=== PATIENT | female | born 1995 | race Caucasian/White ===

== ENCOUNTER 2018-07-07 16:58 | Emergency (ER) | payer MEDICAID ==
[~2018-07-07 16:58] MED LIST: CEPH250T PO; DIPH25CA83 PO; LORA-512 PO; METR500T4 PO; NAPR500T6 PO; NITR100C6 PO; OMEP20TA23 PO; PRED50TA PO; RANI-366 PO; [UNRECOGNIZED DRUG - SUPPLY]
[2018-07-07 17:04] VITALS: BP 107/66
[2018-07-07 17:48] LABS: URINE HCG NEGATIVE (NEG)
[2018-07-07] MEDS ORDERED: CefTRIAXone 1000mg IM Kit (w/lidocaine diluent) IM ONE (20:40)
[2018-07-07] MEDS ORDERED: azithromycin 250mg tablet PO ONE (20:50)
== END 2018-07-07 20:56 | disposition home or self-care (01) ==
LOC: ER 16:58 → EEVIPCON 16:58 → ER 20:56
DX: S10.83XA Contusion of other specified part of neck, initial encounter (principal); S80.12XA Contusion of left lower leg, initial encounter; S80.11XA Contusion of right lower leg, initial encounter; S70.12XA Contusion of left thigh, initial encounter; S70.11XA Contusion of right thigh, initial encounter; S80.02XA Contusion of left knee, initial encounter; S80.211A Abrasion, right knee, initial encounter; T74.21XA Adult sexual abuse, confirmed, initial encounter; J45.909 Unspecified asthma, uncomplicated; G89.29 Other chronic pain; F12.90 Cannabis use, unspecified, uncomplicated; F15.90 Other stimulant use, unspecified, uncomplicated; Z98.890 Other specified postprocedural states; Z88.0 Allergy status to penicillin; Z88.6 Allergy status to analgesic agent; Z88.8 Allergy status to other drugs, medicaments and biological substances; Z79.899 Other long term (current) drug therapy; Y04.0XXA Assault by unarmed brawl or fight, initial encounter; Y93.89 Activity, other specified; Y92.830 Public park as the place of occurrence of the external cause; Y99.9 Unspecified external cause status; Y07.9 Unspecified perpetrator of maltreatment and neglect
CPT/HCPCS: 81025; 96372; 99284

== ENCOUNTER 2019-12-31 19:47 | Emergency (ER) | payer MEDICAID ==
[~2019-12-31] VITALS: Ht 160 cm; Wt 68.2 kg
[~2019-12-31 19:47] MED LIST changes: +METR-159 PO; -METR500T4 PO
[2019-12-31 20:22] LABS: URINE HCG NEGATIVE (NEG)
[2019-12-31 20:25] LABS: CLARITY,URINE SLIGHTLY CLOUDY (Clear); COLOR,URINE YELLOW (Yellow); GLUCOSE, URINE NEGATIVE (Neg); KETONES,URINE NEGATIVE (Neg); LEUKOCYTE ESTERASE ,URINE SMALL (Neg); NITRITES, URINE NEGATIVE (Neg); OCCULT BLOOD,URINE TRACE-INTACT (Neg); PROTEIN,URINE NEGATIVE (Neg); UROBILINOGEN,URINE 0.2 E.U/dL (0.2-1.0)
[2019-12-31 20:26] LABS: UA COLLECTION TYPE CLN CATCH MIDSTREAM
[2019-12-31 20:33] LABS: BACTERIA,URINE 2+ /HPF (Neg); MUCUS STRANDS MANY /LPF (Neg); SQUAMOUS EPITHELIAL CELL,UR MANY /LPF (FEW)
[2019-12-31] MEDS ORDERED: azithromycin 250mg tablet PO ONE (20:40)
[2019-12-31] MEDS ORDERED: CefTRIAXone 250MG IM Kit w/LIDOcaine IM ONE (20:40)
[2019-12-31] MEDS ORDERED: ondansetron 4mg rapidly disintigrating tab PO ONE (21:25)
[2019-12-31] MEDS ORDERED: DOXY100C2 PO (23:13)
--- NOTE | 2019-12-31 23:15 | NUR ---
RALPH Castro at bedside.
[2019-12-31] MEDS ORDERED: BENCRM TOP (23:17)
[2019-12-31 23:24] VITALS: BP 117/79
== END 2019-12-31 23:25 | disposition home or self-care (01) ==
LOC: ER 19:52
DX: N89.8 Other specified noninflammatory disorders of vagina (principal); Z11.3 Encounter for screening for infections with a predominantly sexual mode of transmission; J45.909 Unspecified asthma, uncomplicated; G89.29 Other chronic pain; F41.9 Anxiety disorder, unspecified; F31.9 Bipolar disorder, unspecified; F12.90 Cannabis use, unspecified, uncomplicated; F15.90 Other stimulant use, unspecified, uncomplicated; Z98.890 Other specified postprocedural states; Z86.69 Personal history of other diseases of the nervous system and sense organs; Z88.8 Allergy status to other drugs, medicaments and biological substances; Z79.899 Other long term (current) drug therapy
CPT/HCPCS: 36415; 81001; 81025; 87210; 87491; 87591; 96372; 99284; J0696

== ENCOUNTER 2020-08-02 14:32 | Emergency (ER) | payer MEDICAID ==
[~2020-08-02] VITALS: Ht 160 cm; Wt 70.5 kg
[~2020-08-02 14:32] MED LIST changes: +BENCRM TOP
[2020-08-02 15:20] LABS: BASOPHILS % (AUTO) 0.5 % (0-1); EOSINOPHILS # (AUTO) 0.1 X10'3 (0-0.9); EOSINOPHILS % (AUTO) 0.8 % (0-6); HEMATOCRIT 35.3 % (35.0-45.0); HEMOGLOBIN 12.1 g/dl (12.0-16.0); LYMPHOCYTES # (AUTO) 1.5 X10'3 (1.1-4.8); LYMPHOCYTES % (AUTO) 23.8 % (21-51); MEAN CORPUSCULAR HEMOGLOBIN 30.3 PG (27.0-31.0); MEAN CORPUSCULAR HGB CONC 34.2 g/dL (33.0-36.5); MEAN CORPUSCULAR VOLUME 88.7 FL (78-98); MEAN PLATELET VOLUME 7.6 FL (7.4-10.4); MONOCYTES # (AUTO) 0.5 X10'3 (0-0.9); MONOCYTES % (AUTO) 8.6 % (2-12); NEUTROPHILS # (AUTO) 4.2 X10'3 (1.8-7.7); NEUTROPHILS % (AUTO) 66.3 % (42-75); PLATELET COUNT 236 X10'3 (140-440); RED BLOOD COUNT 3.98 X10'6 (4.20-5.60); RED CELL DISTRIBUTION WIDTH 12.8 % (11.5-14.5); WHITE BLOOD COUNT 6.4 X10'3 (4.5-11.0)
[2020-08-02 15:36] LABS: ALANINE AMINOTRANSFERASE 20 U/L (12-78); ALBUMIN 3.2 G/DL (3.4-5.0); ALBUMIN/GLOBULIN RATIO 0.8 (1.1-1.5); ALKALINE PHOSPHATASE 46 IU/L (46-116); ANION GAP 8 (8-16); ASPARTATE AMINO TRANSFERASE 18 U/L (10-37); BILIRUBIN,TOTAL 0.2 MG/DL (0.1-1.0); BLOOD UREA NITROGEN 9 MG/DL (7-18); BUN/CREATININE RATIO 15.3 (6.6-38.0); CALCIUM 8.4 MG/DL (8.5-10.1); CHLORIDE 104 MMOL/L (99-107); CREATININE 0.59 MG/DL (0.40-0.90); GLUCOSE 94 MG/DL (70-104); POTASSIUM 3.6 MMOL/L (3.5-5.1); SODIUM 138 MMOL/L (135-145); TOTAL CARBON DIOXIDE 25.6 MMOL/L (24-32); TOTAL PROTEIN 7.3 G/DL (6.4-8.2); eGFR > 90 ML/MIN
[2020-08-02 17:39] LABS: CLARITY,URINE SLIGHTLY CLOUDY (Clear); COLOR,URINE YELLOW (Yellow); GLUCOSE, URINE NEGATIVE (Neg); KETONES,URINE NEGATIVE (Neg); LEUKOCYTE ESTERASE ,URINE NEGATIVE (Neg); NITRITES, URINE NEGATIVE (Neg); OCCULT BLOOD,URINE NEGATIVE (Neg); PROTEIN,URINE NEGATIVE (Neg); UROBILINOGEN,URINE 0.2 E.U/dL (0.2-1.0)
[2020-08-02 17:42] LABS: UA COLLECTION TYPE CLN CATCH MIDSTREAM
[2020-08-02 18:00] LABS: MUCUS STRANDS MODERATE /LPF (Neg); RBC,URINE NONE SEEN /HPF (0-2); SQUAMOUS EPITHELIAL CELL,UR MANY /LPF (FEW); WBC,URINE NONE SEEN /HPF (0-4)
[2020-08-02 18:01] LABS: BACTERIA,URINE FEW /HPF (Neg)
[2020-08-02 18:03] VITALS: BP 111/77
== END 2020-08-02 18:08 | disposition home or self-care (01) ==
LOC: ER 14:33
DX: O26.892 Other specified pregnancy related conditions, second trimester (principal); R07.89 Other chest pain; R51.9 Headache, unspecified; G89.29 Other chronic pain; O99.512 Diseases of the respiratory system complicating pregnancy, second trimester; J45.909 Unspecified asthma, uncomplicated; O99.342 Other mental disorders complicating pregnancy, second trimester; F41.9 Anxiety disorder, unspecified; F31.9 Bipolar disorder, unspecified; F20.9 Schizophrenia, unspecified; O99.322 Drug use complicating pregnancy, second trimester; F12.90 Cannabis use, unspecified, uncomplicated; F15.90 Other stimulant use, unspecified, uncomplicated; Z98.890 Other specified postprocedural states; Z88.8 Allergy status to other drugs, medicaments and biological substances; Z79.899 Other long term (current) drug therapy; Z3A.18 18 weeks gestation of pregnancy
CPT/HCPCS: 36415; 80053; 81001; 83880; 84484; 85025; 93005; 99285

== ENCOUNTER 2021-03-06 23:55 | Emergency (ER) | payer MEDICAID ==
[~2021-03-06] VITALS: Ht 160 cm; Wt 78.4 kg
[2021-03-07 00:09] VITALS: BP 112/74
[2021-03-07] MEDS ORDERED: AZIT-63 PO (00:35)
[2021-03-07] MEDS ORDERED: BENZ-16 PO (00:35)
== END 2021-03-07 00:44 | disposition home or self-care (01) ==
LOC: ER 23:56
DX: R05 Cough (principal); M54.2 Cervicalgia; R06.02 Shortness of breath; J45.909 Unspecified asthma, uncomplicated; G89.29 Other chronic pain; F41.9 Anxiety disorder, unspecified; F31.9 Bipolar disorder, unspecified; F20.9 Schizophrenia, unspecified; F12.90 Cannabis use, unspecified, uncomplicated; F15.90 Other stimulant use, unspecified, uncomplicated; Z86.69 Personal history of other diseases of the nervous system and sense organs; Z98.890 Other specified postprocedural states; Z88.8 Allergy status to other drugs, medicaments and biological substances; Z79.899 Other long term (current) drug therapy
CPT/HCPCS: 99283

== ENCOUNTER 2021-05-21 11:59 | Emergency (ER) | payer MEDICAID ==
[~2021-05-21] VITALS: Ht 160 cm; Wt 77.0 kg
[2021-05-21 12:49] VITALS: BP 137/62
== END 2021-05-21 14:20 | disposition left against medical advice (07) ==
LOC: ER 12:00
DX: L02.511 Cutaneous abscess of right hand (principal); Z53.21 Procedure and treatment not carried out due to patient leaving prior to being seen by health care provider

== ENCOUNTER 2021-08-22 21:23 | Emergency (ER) | payer MEDICAID ==
[~2021-08-22] VITALS: Ht 160 cm; Wt 63.0 kg
[2021-08-22 22:39] VITALS: BP 124/68
== END 2021-08-23 08:49 | disposition left against medical advice (07) ==
LOC: ER 21:24
DX: R21 Rash and other nonspecific skin eruption (principal); Z53.21 Procedure and treatment not carried out due to patient leaving prior to being seen by health care provider

== ENCOUNTER 2021-08-28 11:34 | Emergency (ER) | payer MEDICAID ==
[~2021-08-28] VITALS: Ht 160 cm; Wt 59.1 kg
[2021-08-28] MEDS ORDERED: diphenhydrAMINE 50 mg/ml inj IV ONE (11:40)
[2021-08-28] MEDS ORDERED: methylPREDNISolone sod succ 125mg/2ml vial IV ONE (11:40)
[2021-08-28] MEDS ORDERED: albuterol 2.5 MG/3 ML nebule NEB ONE (11:40)
[2021-08-28] MEDS ORDERED: famotidine/PF 10 mg/ml inj IV ONE (11:40)
[2021-08-28 12:15] LABS: BASOPHILS # (AUTO) 0.1 X10'3 (0-0.2); BASOPHILS % (AUTO) 1.3 % (0-1); EOSINOPHILS # (AUTO) 0.1 X10'3 (0-0.9); EOSINOPHILS % (AUTO) 1.5 % (0-6); HEMATOCRIT 37.7 % (35.0-45.0); HEMOGLOBIN 12.9 g/dl (12.0-16.0); LYMPHOCYTES # (AUTO) 1.5 X10'3 (1.1-4.8); LYMPHOCYTES % (AUTO) 36.3 % (21-51); MEAN CORPUSCULAR HGB CONC 34.1 g/dL (33.0-36.5); MEAN CORPUSCULAR VOLUME 87.8 FL (78-98); MEAN PLATELET VOLUME 7.6 FL (7.4-10.4); MONOCYTES # (AUTO) 0.5 X10'3 (0-0.9); MONOCYTES % (AUTO) 13.5 % (2-12); NEUTROPHILS # (AUTO) 1.9 X10'3 (1.8-7.7); NEUTROPHILS % (AUTO) 47.4 % (42-75); PLATELET COUNT 292 X10'3 (140-440); RED BLOOD COUNT 4.29 X10'6 (4.20-5.60); RED CELL DISTRIBUTION WIDTH 12.7 % (11.5-14.5)
[2021-08-28 12:30] LABS: ALANINE AMINOTRANSFERASE 22 U/L (12-78); ALBUMIN 3.5 G/DL (3.4-5.0); ALKALINE PHOSPHATASE 61 IU/L (46-116); ANION GAP 11 (8-16); ASPARTATE AMINO TRANSFERASE 18 U/L (10-37); BILIRUBIN,TOTAL 0.3 MG/DL (0.1-1.0); BLOOD UREA NITROGEN 11 MG/DL (7-18); BUN/CREATININE RATIO 12.5 (6.6-38.0); CALCIUM 7.6 MG/DL (8.5-10.1); CHLORIDE 106 MMOL/L (99-107); CREATININE 0.88 MG/DL (0.40-0.90); GLUCOSE 86 MG/DL (70-104); SODIUM 141 MMOL/L (135-145); TOTAL CARBON DIOXIDE 23.6 MMOL/L (24-32); eGFR 77 ML/MIN
[2021-08-28 13:30] VITALS: BP 120/75
== END 2021-08-28 13:33 | disposition home or self-care (01) ==
LOC: ER 11:34
DX: L27.0 Generalized skin eruption due to drugs and medicaments taken internally (principal); T36.8X5A Adverse effect of other systemic antibiotics, initial encounter; G40.909 Epilepsy, unspecified, not intractable, without status epilepticus; J45.909 Unspecified asthma, uncomplicated; G89.29 Other chronic pain; F15.90 Other stimulant use, unspecified, uncomplicated; F12.90 Cannabis use, unspecified, uncomplicated; Z87.81 Personal history of (healed) traumatic fracture; Z88.0 Allergy status to penicillin; Z88.1 Allergy status to other antibiotic agents; Z88.8 Allergy status to other drugs, medicaments and biological substances; Z79.899 Other long term (current) drug therapy; Z79.2 Long term (current) use of antibiotics; Y92.89 Other specified places as the place of occurrence of the external cause
CPT/HCPCS: 36415; 71045; 80053; 85025; 93005; 94640; 96374; 96375; 99285; J1200; J2930; J3490; 94760

== ENCOUNTER 2021-10-06 17:12 | Emergency (ER) | payer MEDICAID ==
[~2021-10-06] VITALS: Ht 160 cm; Wt 75.0 kg
[2021-10-06 17:38] VITALS: BP 114/73
[2021-10-06] MEDS ORDERED: CefTRIAXone 1000mg IM Kit (w/lidocaine diluent) IM ONE (17:45)
[2021-10-06 18:40] LABS: URINE HCG NEGATIVE (NEG)
[2021-10-06 18:47] LABS: CLARITY,URINE CLEAR (Clear); COLOR,URINE YELLOW (Yellow); GLUCOSE, URINE NEGATIVE (Neg); KETONES,URINE NEGATIVE (Neg); LEUKOCYTE ESTERASE ,URINE NEGATIVE (Neg); NITRITES, URINE NEGATIVE (Neg); OCCULT BLOOD,URINE NEGATIVE (Neg); PROTEIN,URINE NEGATIVE (Neg); UROBILINOGEN,URINE 0.2 E.U/dL (0.2-1.0)
[2021-10-06 18:49] LABS: UA COLLECTION TYPE CLN CATCH MIDSTREAM
[2021-10-06] MEDS ORDERED: DOXYCYCLINE 100MG CAPSULE PO STA (19:09)
[2021-10-06] MEDS ORDERED: CEPH250T PO (19:34)
[2021-10-06] MEDS ORDERED: DOXY100C77 PO (19:34)
== END 2021-10-06 20:40 | disposition home or self-care (01) ==
LOC: ER 17:12
DX: A64 Unspecified sexually transmitted disease (principal); F12.10 Cannabis abuse, uncomplicated; F15.10 Other stimulant abuse, uncomplicated; G89.29 Other chronic pain; M54.9 Dorsalgia, unspecified; J45.909 Unspecified asthma, uncomplicated; F31.9 Bipolar disorder, unspecified; Z88.1 Allergy status to other antibiotic agents; Z88.6 Allergy status to analgesic agent
CPT/HCPCS: 36415; 81003; 81025; 86592; 87491; 87591; 96372; 99283; J0696

== ENCOUNTER 2022-01-06 23:22 | Emergency (ER) | payer MEDICAID ==
[~2022-01-06] VITALS: Ht 160 cm; Wt 68.2 kg
[2022-01-06 23:28] VITALS: BP 112/80
[2022-01-06 23:49] LABS: BASOPHILS % (AUTO) 0.7 % (0-1); EOSINOPHILS # (AUTO) 0.1 X10'3 (0-0.9); EOSINOPHILS % (AUTO) 0.9 % (0-6); HEMATOCRIT 37.7 % (35.0-45.0); LYMPHOCYTES # (AUTO) 1.4 X10'3 (1.1-4.8); LYMPHOCYTES % (AUTO) 19.5 % (21-51); MEAN CORPUSCULAR HEMOGLOBIN 29.9 PG (27.0-31.0); MEAN CORPUSCULAR HGB CONC 34.6 g/dL (33.0-36.5); MEAN CORPUSCULAR VOLUME 86.5 FL (78-98); MEAN PLATELET VOLUME 7.6 FL (7.4-10.4); MONOCYTES # (AUTO) 0.6 X10'3 (0-0.9); MONOCYTES % (AUTO) 8.9 % (2-12); PLATELET COUNT 300 X10'3 (140-440); RED BLOOD COUNT 4.35 X10'6 (4.20-5.60); RED CELL DISTRIBUTION WIDTH 12.9 % (11.5-14.5); WHITE BLOOD COUNT 7.1 X10'3 (4.5-11.0)
[2022-01-07 00:01] LABS: ALANINE AMINOTRANSFERASE 21 U/L (12-78); ALBUMIN 3.9 G/DL (3.4-5.0); ALBUMIN/GLOBULIN RATIO 1.1 (1.1-1.5); ALKALINE PHOSPHATASE 76 IU/L (46-116); ANION GAP 7 (8-16); ASPARTATE AMINO TRANSFERASE 19 U/L (10-37); BILIRUBIN,TOTAL 0.2 MG/DL (0.1-1.0); BLOOD UREA NITROGEN 15 MG/DL (7-18); BUN/CREATININE RATIO 17.6 (6.6-38.0); CALCIUM 8.1 MG/DL (8.5-10.1); CHLORIDE 107 MMOL/L (99-107); CREATININE 0.85 MG/DL (0.40-0.90); GLUCOSE 102 MG/DL (70-104); POTASSIUM 3.9 MMOL/L (3.5-5.1); SODIUM 142 MMOL/L (135-145); TOTAL CARBON DIOXIDE 27.7 MMOL/L (24-32); TOTAL PROTEIN 7.4 G/DL (6.4-8.2); eGFR 80 ML/MIN
[2022-01-07 00:07] LABS: BETA HCG,QUANTITATIVE < 1.0 mIU/ml
[2022-01-07 00:19] LABS: HCG SERUM QL NEGATIVE
[2022-01-07] MEDS ORDERED: tetanus & diphtheria toxoid (Td) vaccine 0.5ml IMVAC ONE (00:55)
[2022-01-07] MEDS ORDERED: TETanus/Pertussis (Acell)/Diphther VAC/PF (Tdap-Adult) 0.5ml syringe IMVAC ONE (01:00)
== END 2022-01-07 01:08 ==
LOC: ER 23:24
DX: S61.412A Laceration without foreign body of left hand, initial encounter (principal); R11.10 Vomiting, unspecified; J45.909 Unspecified asthma, uncomplicated; G89.29 Other chronic pain; F41.9 Anxiety disorder, unspecified; F31.9 Bipolar disorder, unspecified; F20.9 Schizophrenia, unspecified; F12.90 Cannabis use, unspecified, uncomplicated; F15.90 Other stimulant use, unspecified, uncomplicated; Z88.1 Allergy status to other antibiotic agents; Z86.69 Personal history of other diseases of the nervous system and sense organs; Z98.890 Other specified postprocedural states; Z88.6 Allergy status to analgesic agent; Z79.2 Long term (current) use of antibiotics; Z88.8 Allergy status to other drugs, medicaments and biological substances; Z20.3 Contact with and (suspected) exposure to rabies; Z79.899 Other long term (current) drug therapy; X58.XXXA Exposure to other specified factors, initial encounter; Y93.89 Activity, other specified; Y92.89 Other specified places as the place of occurrence of the external cause; Y99.8 Other external cause status
CPT/HCPCS: 12001; 36415; 80053; 84702; 84703; 85025; 90471; 90715; 99283

== ENCOUNTER 2022-04-30 20:01 | Emergency (ER) | payer MEDICAID ==
[~2022-04-30] VITALS: Ht 160 cm; Wt 77.3 kg
[2022-04-30 20:09] VITALS: BP 114/70
[2022-04-30 22:07] LABS: CLARITY,URINE CLEAR (Clear); COLOR,URINE YELLOW (Yellow); GLUCOSE, URINE NEGATIVE (Neg); KETONES,URINE TRACE mg/dl (Neg); LEUKOCYTE ESTERASE ,URINE MODERATE (Neg); NITRITES, URINE POSITIVE (Neg); OCCULT BLOOD,URINE NEGATIVE (Neg); PROTEIN,URINE TRACE mg/dl (Neg); URINE HCG POSITIVE (NEG)
[2022-04-30] MEDS ORDERED: azithromycin 250mg tablet PO ONE (22:15)
[2022-04-30] MEDS ORDERED: CEFTRIAXONE 500 MG VIAL IM ONE (22:15)
[2022-04-30] MEDS ORDERED: metroNIDAZOLE 500mg tablet PO ONE (22:15)
[2022-04-30 22:18] LABS: UA COLLECTION TYPE VOIDED
[2022-04-30] MEDS ORDERED: ondansetron 4mg rapidly disintigrating tab PO ONE (22:20)
[2022-04-30 22:22] LABS: BACTERIA,URINE 3+ /HPF (Neg); MUCUS STRANDS MODERATE /LPF (Neg); SQUAMOUS EPITHELIAL CELL,UR MANY /LPF (FEW); YEAST FEW /HPF (NEGATIVE)
[2022-04-30] MEDS ORDERED: CefTRIAXone 500MG IM Kit w/LIDOcaine IM ONE ×2 (22:30)
[2022-05-01] MEDS ORDERED: NITR100C6 PO (01:17)
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
== END 2022-05-01 02:44 | disposition home or self-care (01) ==
LOC: ER 20:02 → EEVIPCON 20:02 → ER 05-01 02:44
DX: N30.00 Acute cystitis without hematuria (principal); T76.21XA Adult sexual abuse, suspected, initial encounter; J45.909 Unspecified asthma, uncomplicated; G89.29 Other chronic pain; M54.9 Dorsalgia, unspecified; F12.10 Cannabis abuse, uncomplicated; F15.10 Other stimulant abuse, uncomplicated; F31.9 Bipolar disorder, unspecified; Z88.8 Allergy status to other drugs, medicaments and biological substances; Z88.6 Allergy status to analgesic agent; Z88.0 Allergy status to penicillin
CPT/HCPCS: 81001; 81025; 96372; 99284; J0696

== ENCOUNTER 2022-09-09 11:55 | Emergency (ER) | payer MEDICAID ==
[~2022-09-09] VITALS: Ht 160 cm; Wt 79.0 kg
[2022-09-09 12:22] VITALS: BP 124/72
[2022-09-09 13:12] LABS: CLARITY,URINE CLEAR (Clear); COLOR,URINE YELLOW (Yellow); GLUCOSE, URINE NEGATIVE (Neg); KETONES,URINE NEGATIVE (Neg); LEUKOCYTE ESTERASE ,URINE NEGATIVE (Neg); NITRITES, URINE NEGATIVE (Neg); OCCULT BLOOD,URINE NEGATIVE (Neg); PH,URINE 6.5 (4.8-8.0); PROTEIN,URINE NEGATIVE (Neg); UROBILINOGEN,URINE 0.2 E.U/dL (0.2-1.0)
[2022-09-09 13:28] LABS: UA COLLECTION TYPE CLN CATCH MIDSTREAM
[2022-09-09] MEDS ORDERED: normal saline 1000ML IV soln IVB ONE (13:55)
[2022-09-09 14:19] LABS: BASOPHILS # (AUTO) 0.1 X10'3 (0-0.2); BASOPHILS % (AUTO) 0.6 % (0-1); EOSINOPHILS % (AUTO) 0.5 % (0-6); HEMATOCRIT 32.5 % (35.0-45.0); HEMOGLOBIN 11.3 g/dl (12.0-16.0); LYMPHOCYTES # (AUTO) 1.5 X10'3 (1.1-4.8); LYMPHOCYTES % (AUTO) 16.7 % (21-51); MEAN CORPUSCULAR HGB CONC 34.9 g/dL (33.0-36.5); MEAN CORPUSCULAR VOLUME 91.7 FL (78-98); MEAN PLATELET VOLUME 8.2 FL (7.4-10.4); MONOCYTES # (AUTO) 0.8 X10'3 (0-0.9); MONOCYTES % (AUTO) 8.4 % (2-12); NEUTROPHILS # (AUTO) 6.7 X10'3 (1.8-7.7); NEUTROPHILS % (AUTO) 73.8 % (42-75); PLATELET COUNT 206 X10'3 (140-440); RED BLOOD COUNT 3.54 X10'6 (4.20-5.60); RED CELL DISTRIBUTION WIDTH 12.7 % (11.5-14.5); WHITE BLOOD COUNT 9.1 X10'3 (4.5-11.0)
[2022-09-09 14:35] LABS: ALANINE AMINOTRANSFERASE 13 U/L (12-78); ALBUMIN 2.4 G/DL (3.4-5.0); ALBUMIN/GLOBULIN RATIO 0.6 (1.1-1.5); ALKALINE PHOSPHATASE 90 IU/L (46-116); ANION GAP 5 (8-16); ASPARTATE AMINO TRANSFERASE 21 U/L (10-37); BILIRUBIN,TOTAL 0.3 MG/DL (0.1-1.0); BLOOD UREA NITROGEN 7 MG/DL (7-18); BUN/CREATININE RATIO 11.7 (6.6-38.0); CALCIUM 8.1 MG/DL (8.5-10.1); CHLORIDE 103 MMOL/L (99-107); ETHANOL < 0.010 GM/DL (0.0-0.010); GLUCOSE 85 MG/DL (70-104); POTASSIUM 3.6 MMOL/L (3.5-5.1); SODIUM 136 MMOL/L (135-145); TOTAL CARBON DIOXIDE 27.6 MMOL/L (24-32); TOTAL PROTEIN 6.3 G/DL (6.4-8.2); eGFR > 90 ML/MIN
--- NOTE | 2022-09-09 14:55 | NUR ---
VASCULAR AT BEDSIDE
[2022-09-09 15:33] LABS: URINE AMPHETAMINE SCREEN NEGATIVE (Neg); URINE BARBITUATE SCREEN NEGATIVE (Neg); URINE BENZODIAZEPINES SCREEN NEGATIVE (Neg); URINE CANNABINOID SCREEN POSITIVE (Neg); URINE COCAINE SCREEN NEGATIVE (Neg); URINE METHADONE SCREEN NEGATIVE (Neg); URINE OPIATE SCREEN NEGATIVE (Neg); URINE PHENCYCLIDINE SCREEN NEGATIVE (Neg)
== END 2022-09-09 15:23 | disposition home or self-care (01) ==
LOC: ER 11:56
DX: O26.893 Other specified pregnancy related conditions, third trimester (principal); J06.9 Acute upper respiratory infection, unspecified; Z20.822 Contact with and (suspected) exposure to COVID-19; B97.89 Other viral agents as the cause of diseases classified elsewhere; J45.909 Unspecified asthma, uncomplicated; G89.29 Other chronic pain; F41.9 Anxiety disorder, unspecified; F31.9 Bipolar disorder, unspecified; F20.9 Schizophrenia, unspecified; F12.90 Cannabis use, unspecified, uncomplicated; F15.90 Other stimulant use, unspecified, uncomplicated; Z98.890 Other specified postprocedural states; Z88.1 Allergy status to other antibiotic agents; Z88.8 Allergy status to other drugs, medicaments and biological substances; Z88.6 Allergy status to analgesic agent; Z79.899 Other long term (current) drug therapy; Z3A.00 Weeks of gestation of pregnancy not specified
CPT/HCPCS: 36415; 80053; 80305; 80320; 81003; 85025; 87502; 87503; 87635; 93970; 99284; C9803

== ENCOUNTER 2022-11-29 15:07 | Emergency (ER) | payer MEDICAID ==
[~2022-11-29] VITALS: Ht 160 cm; Wt 68.2 kg
[2022-11-29 15:55] LABS: BASOPHILS # (AUTO) 0.1 X10'3 (0-0.2); EOSINOPHILS # (AUTO) 0.2 X10'3 (0-0.9); EOSINOPHILS % (AUTO) 2.9 % (0-6); HEMATOCRIT 40.6 % (35.0-45.0); HEMOGLOBIN 13.4 g/dl (12.0-16.0); LYMPHOCYTES # (AUTO) 1.9 X10'3 (1.1-4.8); LYMPHOCYTES % (AUTO) 33.1 % (21-51); MEAN CORPUSCULAR HEMOGLOBIN 29.6 PG (27.0-31.0); MEAN CORPUSCULAR HGB CONC 33.1 g/dL (33.0-36.5); MEAN CORPUSCULAR VOLUME 89.4 FL (78-98); MEAN PLATELET VOLUME 7.8 FL (7.4-10.4); MONOCYTES # (AUTO) 0.5 X10'3 (0-0.9); MONOCYTES % (AUTO) 9.2 % (2-12); NEUTROPHILS # (AUTO) 3.1 X10'3 (1.8-7.7); NEUTROPHILS % (AUTO) 53.8 % (42-75); PLATELET COUNT 281 X10'3 (140-440); RED BLOOD COUNT 4.54 X10'6 (4.20-5.60); RED CELL DISTRIBUTION WIDTH 12.7 % (11.5-14.5); WHITE BLOOD COUNT 5.7 X10'3 (4.5-11.0)
[2022-11-29 16:09] LABS: ALANINE AMINOTRANSFERASE 24 U/L (12-78); ALBUMIN 3.6 G/DL (3.4-5.0); ALBUMIN/GLOBULIN RATIO 1.1 (1.1-1.5); ALKALINE PHOSPHATASE 97 IU/L (46-116); ANION GAP 6 (8-16); ASPARTATE AMINO TRANSFERASE 23 U/L (10-37); BILIRUBIN,TOTAL 0.3 MG/DL (0.1-1.0); BLOOD UREA NITROGEN 18 MG/DL (7-18); CALCIUM 8.6 MG/DL (8.5-10.1); CHLORIDE 104 MMOL/L (99-107); GLUCOSE 82 MG/DL (70-104); POTASSIUM 3.9 MMOL/L (3.5-5.1); SODIUM 139 MMOL/L (135-145); TOTAL CARBON DIOXIDE 29.5 MMOL/L (24-32); eGFR 75 ML/MIN
[2022-11-29 16:27] VITALS: BP 120/86
[2022-11-29 16:42] LABS: CLARITY,URINE CLEAR (Clear); COLOR,URINE YELLOW (Yellow); GLUCOSE, URINE NEGATIVE (Neg); KETONES,URINE NEGATIVE (Neg); LEUKOCYTE ESTERASE ,URINE SMALL (Neg); NITRITES, URINE NEGATIVE (Neg); OCCULT BLOOD,URINE NEGATIVE (Neg); PROTEIN,URINE NEGATIVE (Neg); UROBILINOGEN,URINE 0.2 E.U/dL (0.2-1.0)
[2022-11-29 16:52] LABS: UA COLLECTION TYPE CLN CATCH MIDSTREAM
[2022-11-29 16:53] LABS: BACTERIA,URINE FEW /HPF (Neg); MUCUS STRANDS FEW /LPF (Neg); RBC,URINE NONE SEEN /HPF (0-2); SQUAMOUS EPITHELIAL CELL,UR MODERATE /LPF (FEW); WBC,URINE 0-4 /HPF (0-4)
[2022-11-29 17:00] LABS: URINE HCG NEGATIVE (NEG)
[2022-11-29] MEDS ORDERED: HYDR-3972 PO (17:13)
[2022-11-29] MEDS ORDERED: HYDROcodone/acetaminophen 10/325mg tab PO ONE (17:15)
== END 2022-11-29 17:46 | disposition home or self-care (01) ==
LOC: ER 15:08
DX: M79.605 Pain in left leg (principal); F41.9 Anxiety disorder, unspecified; M54.50 Low back pain, unspecified; J45.909 Unspecified asthma, uncomplicated; F31.9 Bipolar disorder, unspecified; F12.90 Cannabis use, unspecified, uncomplicated; F15.20 Other stimulant dependence, uncomplicated; Z88.1 Allergy status to other antibiotic agents; Z88.6 Allergy status to analgesic agent; Z88.8 Allergy status to other drugs, medicaments and biological substances
CPT/HCPCS: 36415; 80053; 81001; 81025; 85025; 87088; 99283

== ENCOUNTER 2022-12-19 16:07 | Emergency (ER) | payer MEDICAID ==
[~2022-12-19] VITALS: Ht 160 cm; Wt 72.7 kg
[2022-12-19 16:10] VITALS: BP 106/51
[2022-12-19] MEDS ORDERED: fluconazole 150mg tablet PO ONE (19:25)
[2022-12-19] MEDS ORDERED: MICO45CR46 VG (19:27)
== END 2022-12-19 20:06 | disposition home or self-care (01) ==
LOC: ER 16:08
DX: B37.31 Acute candidiasis of vulva and vagina (principal); F12.10 Cannabis abuse, uncomplicated; F15.10 Other stimulant abuse, uncomplicated; J45.909 Unspecified asthma, uncomplicated; G89.29 Other chronic pain; M54.9 Dorsalgia, unspecified; F31.9 Bipolar disorder, unspecified; F20.9 Schizophrenia, unspecified; Z87.81 Personal history of (healed) traumatic fracture; Z59.00 Homelessness unspecified; Z88.1 Allergy status to other antibiotic agents; Z88.8 Allergy status to other drugs, medicaments and biological substances; Z88.6 Allergy status to analgesic agent; Z79.1 Long term (current) use of non-steroidal anti-inflammatories (NSAID); Z79.2 Long term (current) use of antibiotics
CPT/HCPCS: 87210; 99284

== ENCOUNTER 2023-01-02 12:29 | Emergency (ER) | payer MEDICAID ==
[~2023-01-02] VITALS: Ht 160 cm; Wt 72.7 kg
[2023-01-02 12:42] VITALS: BP 117/69
[2023-01-02] MEDS ORDERED: CEFD300C3 PO (14:34)
[2023-01-02] MEDS ORDERED: SULF1TAB49 PO (14:34)
[2023-01-02] MEDS ORDERED: cephalexin 500mg capsule PO ONE (14:35)
[2023-01-02] MEDS ORDERED: sulfamethoxazole/trimethoprim DS (800/160mg) tablet PO ONE (14:35)
== END 2023-01-02 15:25 | disposition home or self-care (01) ==
LOC: ER 12:29
DX: L03.213 Periorbital cellulitis (principal); G89.29 Other chronic pain; M54.9 Dorsalgia, unspecified; F12.10 Cannabis abuse, uncomplicated; F15.10 Other stimulant abuse, uncomplicated; J45.909 Unspecified asthma, uncomplicated; F31.9 Bipolar disorder, unspecified; F20.9 Schizophrenia, unspecified; Z88.6 Allergy status to analgesic agent; Z88.1 Allergy status to other antibiotic agents; Z88.0 Allergy status to penicillin; Z79.1 Long term (current) use of non-steroidal anti-inflammatories (NSAID); Z79.2 Long term (current) use of antibiotics
CPT/HCPCS: 99283

== ENCOUNTER 2023-01-16 08:26 | Emergency (ER) | payer MEDICAID ==
[~2023-01-16] VITALS: Ht 160 cm; Wt 68.0 kg
[2023-01-16 08:31] VITALS: BP 122/93
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
== END 2023-01-16 09:30 | disposition left against medical advice (07) ==
LOC: EEVIPCON 08:27 → ER 08:27
DX: R21 Rash and other nonspecific skin eruption (principal); Z53.21 Procedure and treatment not carried out due to patient leaving prior to being seen by health care provider

== ENCOUNTER 2023-01-16 17:29 | Emergency (ER) | payer MEDICAID ==
[~2023-01-16] VITALS: Ht 160 cm; Wt 68.2 kg
[2023-01-16 18:17] VITALS: BP 125/87
--- NOTE | 2023-01-16 18:23 | NUR ---
[facility] called and they are aware that she is here. Informed [facility] she had left and has now returned. [id number]
--- NOTE | 2023-01-16 19:34 | NUR ---
head of geography will call [facility] they stated
--- NOTE | 2023-01-16 19:50 | NUR ---
[facility] here. NOAH GUNN aware of case
[2023-01-16] MEDS ORDERED: CefTRIAXone 500MG IM Kit w/LIDOcaine (for pt below or = to 150kg) IM ONE (21:20)
[2023-01-16] MEDS ORDERED: azithromycin 250mg tablet PO ONE (21:20)
[2023-01-16] MEDS ORDERED: TINIDAZOLE 500 MG TABLET PO ONE (21:20)
[2023-01-16] MEDS ORDERED: LEVONORGESTREL 1.5MG tablet 1.5 MG TABLET PO ONE (21:20)
== END 2023-01-17 01:40 | disposition home or self-care (01) ==
LOC: ER 17:30 → EEVIPCON 17:30 → ER 01-17 01:40
DX: T76.21XA Adult sexual abuse, suspected, initial encounter (principal); S19.80XA Other specified injuries of unspecified part of neck, initial encounter; G89.29 Other chronic pain; M54.9 Dorsalgia, unspecified; J45.909 Unspecified asthma, uncomplicated; F12.10 Cannabis abuse, uncomplicated; F20.9 Schizophrenia, unspecified; F15.10 Other stimulant abuse, uncomplicated; Z59.00 Homelessness unspecified; Z88.8 Allergy status to other drugs, medicaments and biological substances; Z88.6 Allergy status to analgesic agent; Z79.899 Other long term (current) drug therapy; Z79.1 Long term (current) use of non-steroidal anti-inflammatories (NSAID); Z79.2 Long term (current) use of antibiotics
CPT/HCPCS: 96372; 99284; J0696

== ENCOUNTER 2023-03-26 16:07 | Emergency (ER) | payer MEDICAID ==
[~2023-03-26] VITALS: Ht 160 cm; Wt 68.2 kg
[2023-03-26 16:17] VITALS: BP 114/64
[2023-03-26] MEDS ORDERED: azithromycin 250mg tablet PO ONE (16:30)
[2023-03-26] MEDS ORDERED: CefTRIAXone 1000mg IM Kit (w/lidocaine diluent) IM STA (16:30)
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
[2023-03-26 16:58] LABS: URINE HCG NEGATIVE (NEG)
[2023-03-26 16:59] LABS: CLARITY,URINE SLIGHTLY CLOUDY (Clear); COLOR,URINE YELLOW (Yellow); GLUCOSE, URINE NEGATIVE (Neg); KETONES,URINE NEGATIVE (Neg); LEUKOCYTE ESTERASE ,URINE NEGATIVE (Neg); NITRITES, URINE POSITIVE (Neg); OCCULT BLOOD,URINE NEGATIVE (Neg); PH,URINE 5.5 (4.8-8.0); PROTEIN,URINE NEGATIVE (Neg); UROBILINOGEN,URINE 0.2 E.U/dL (0.2-1.0)
[2023-03-26 17:30] LABS: UA COLLECTION TYPE VOIDED
[2023-03-26 17:33] LABS: MUCUS STRANDS MANY /LPF (Neg); SQUAMOUS EPITHELIAL CELL,UR MANY /LPF (FEW)
[2023-03-26 17:37] LABS: RBC,URINE 0-2 /HPF (0-2)
[2023-03-26 17:38] LABS: BACTERIA,URINE FEW /HPF (Neg)
[2023-03-26] MEDS ORDERED: DOXY100C76 PO (17:39)
== END 2023-03-26 18:13 | disposition home or self-care (01) ==
LOC: EEVIPCON 16:08 → ER 16:08
DX: N39.0 Urinary tract infection, site not specified (principal); N89.8 Other specified noninflammatory disorders of vagina; G89.29 Other chronic pain; J45.909 Unspecified asthma, uncomplicated; F41.9 Anxiety disorder, unspecified; F31.9 Bipolar disorder, unspecified; F20.9 Schizophrenia, unspecified; F12.90 Cannabis use, unspecified, uncomplicated; F15.90 Other stimulant use, unspecified, uncomplicated; Z56.0 Unemployment, unspecified; Z98.890 Other specified postprocedural states; Z88.1 Allergy status to other antibiotic agents; Z88.6 Allergy status to analgesic agent; Z79.899 Other long term (current) drug therapy
CPT/HCPCS: 36415; 81001; 81025; 87491; 87591; 96372; 99283; J0696

== ENCOUNTER 2023-07-03 18:01 | Emergency (ER) | payer MEDICAID, OTHER ==
[~2023-07-03] VITALS: Ht 160 cm; Wt 63.6 kg
--- NOTE | 2023-07-03 18:11 | NUR ---
CALL PLACED TO [facility], THEY WILL SEND OFFICERS OVER [place]
[2023-07-03] MEDS ORDERED: LEVONORGESTREL 1.5MG tablet 1.5 MG TABLET PO ONE (19:50)
[2023-07-03] MEDS ORDERED: azithromycin 250mg tablet PO ONE (19:50)
[2023-07-03] MEDS ORDERED: TINIDAZOLE 500 MG TABLET PO ONE (19:50)
[2023-07-03] MEDS ORDERED: CefTRIAXone 500MG IM Kit w/LIDOcaine (for pt below or = to 150kg) IM ONE (19:50)
[2023-07-03 20:09] LABS: URINE HCG NEGATIVE (NEG)
--- NOTE | 2023-07-03 20:14 | NUR ---
[employer] RESPONDING OFFICER FRANCESCA REY #[id number]
[2023-07-03] MEDS ORDERED: acetaminophen 325mg tablet PO ONE (20:50)
[2023-07-03 22:58] VITALS: BP 109/78; PULSE 90; RESP 14; TEMP 97.8; O2SAT 100
== END 2023-07-03 23:01 | disposition home or self-care (01) ==
LOC: EEVIPCON 18:02 → ER 18:02
DX: T74.21XA Adult sexual abuse, confirmed, initial encounter (principal); J45.909 Unspecified asthma, uncomplicated; G89.29 Other chronic pain; F17.200 Nicotine dependence, unspecified, uncomplicated; F12.90 Cannabis use, unspecified, uncomplicated; F15.90 Other stimulant use, unspecified, uncomplicated; Z87.440 Personal history of urinary (tract) infections; Z59.00 Homelessness unspecified; Z88.1 Allergy status to other antibiotic agents; Z88.8 Allergy status to other drugs, medicaments and biological substances; Z79.2 Long term (current) use of antibiotics; Z79.899 Other long term (current) drug therapy
CPT/HCPCS: 81025; 96372; 99284; J0696

== ENCOUNTER 2023-07-18 20:34 | Emergency (ER) | payer MEDICAID ==
[~2023-07-18] VITALS: Ht 160 cm; Wt 67.8 kg
[2023-07-18 20:44] VITALS: BP 127/99; PULSE 85; RESP 18; TEMP 98.3; O2SAT 99
--- NOTE | 2023-07-18 20:59 | NUR ---
[facility] CONTACTED WILL SEND OFFICER. [facility] CONTACTED WILL SEND ADVOCATE.
--- NOTE | 2023-07-18 23:23 | NUR ---
[employer] OFFICERS ARRIVED, INTERVIEWING PT. [facility] ADVOCATE IN ROOM.
[2023-07-19] MEDS ORDERED: CefTRIAXone 500MG IM Kit w/LIDOcaine (for pt below or = to 150kg) IM ONE (03:20)
[2023-07-19] MEDS ORDERED: azithromycin 250mg tablet PO ONE (03:20)
[2023-07-19] MEDS ORDERED: TINIDAZOLE 500 MG TABLET PO ONE (03:20)
[2023-07-19] MEDS ORDERED: TETanus/Pertussis (Acell)/Diphther VAC/PF (Tdap-Adult) 0.5ml syringe IMVAC ONE (03:35)
[2023-07-19 05:14] LABS: URINE HCG NEGATIVE (NEG)
== END 2023-07-19 06:15 | disposition home or self-care (01) ==
LOC: EEVIPCON 20:35 → ER 20:35
DX: T74.21XA Adult sexual abuse, confirmed, initial encounter (principal); R11.2 Nausea with vomiting, unspecified; J45.909 Unspecified asthma, uncomplicated; G89.29 Other chronic pain; F12.90 Cannabis use, unspecified, uncomplicated; F15.90 Other stimulant use, unspecified, uncomplicated; Z56.0 Unemployment, unspecified; Z87.442 Personal history of urinary calculi; Z88.1 Allergy status to other antibiotic agents; Z88.8 Allergy status to other drugs, medicaments and biological substances; Z79.2 Long term (current) use of antibiotics; Z23 Encounter for immunization; Z79.899 Other long term (current) drug therapy
CPT/HCPCS: 81025; 90471; 90715; 96372; 99284; J0696

== ENCOUNTER 2023-08-08 15:16 | Emergency (ER) | payer MEDICAID ==
[~2023-08-08] VITALS: Ht 160 cm; Wt 65.8 kg
[2023-08-08 15:23] VITALS: TEMP 98
[2023-08-08 16:40] LABS: URINE HCG NEGATIVE (NEG)
[2023-08-08] MEDS ORDERED: DOXYCYCLINE 100MG CAPSULE PO STA (16:43)
[2023-08-08] MEDS ORDERED: metroNIDAZOLE 500mg tablet PO ONE (16:45)
[2023-08-08] MEDS ORDERED: CefTRIAXone 250MG inj IM ONE (16:45)
[2023-08-08] MEDS ORDERED: METR-159 PO (16:50)
[2023-08-08] MEDS ORDERED: DOXY-356 PO (16:50)
[2023-08-08 16:53] LABS: COLOR,URINE ORANGE (Yellow)
[2023-08-08 16:54] LABS: CLARITY,URINE SLIGHTLY CLOUDY (Clear)
[2023-08-08] MEDS ORDERED: CefTRIAXone 500MG IM Kit w/LIDOcaine IM ONE (16:55)
[2023-08-08 16:56] LABS: UA COLLECTION TYPE VOIDED
[2023-08-08 17:00] LABS: BACTERIA,URINE FEW /HPF (Neg); MUCUS STRANDS FEW /LPF (Neg); SQUAMOUS EPITHELIAL CELL,UR MODERATE /LPF (FEW)
[2023-08-08 17:23] VITALS: BP 103/55; PULSE 69; RESP 16; O2SAT 98
--- NOTE | 2023-08-08 17:40 | NUR ---
I agree with the assessment per Benitez Ashley LVN
== END 2023-08-08 17:20 | disposition home or self-care (01) ==
LOC: ER 15:18
DX: A64 Unspecified sexually transmitted disease (principal); J45.909 Unspecified asthma, uncomplicated; F31.9 Bipolar disorder, unspecified; F12.90 Cannabis use, unspecified, uncomplicated; F15.90 Other stimulant use, unspecified, uncomplicated; Z88.8 Allergy status to other drugs, medicaments and biological substances; Z88.1 Allergy status to other antibiotic agents; Z88.6 Allergy status to analgesic agent; Z88.0 Allergy status to penicillin; Z79.2 Long term (current) use of antibiotics; Z79.899 Other long term (current) drug therapy
CPT/HCPCS: 36415; 81001; 81025; 87088; 87491; 87591; 96372; 99283; J0696; Q0112

== ENCOUNTER 2023-09-19 16:06 | Inpatient (IN) | payer MEDICAID ==
[~2023-09-19] VITALS: Ht 160 cm; Wt 66.3 kg
[2023-09-19 16:51] LABS: BILIRUBIN,URINE NEGATIVE (Neg); CLARITY,URINE CLEAR (Clear); COLOR,URINE YELLOW (Yellow); GLUCOSE, URINE NEGATIVE (Neg); KETONES,URINE NEGATIVE (Neg); LEUKOCYTE ESTERASE ,URINE NEGATIVE (Neg); NITRITES, URINE NEGATIVE (Neg); OCCULT BLOOD,URINE MODERATE (Neg); PROTEIN,URINE NEGATIVE (Neg); UROBILINOGEN,URINE 0.2 E.U/dL (0.2-1.0)
[2023-09-19 17:01] LABS: URINE HCG NEGATIVE (NEG)
[2023-09-19 17:04] LABS: URINE AMPHETAMINE SCREEN NEGATIVE (Neg); URINE BARBITUATE SCREEN NEGATIVE (Neg); URINE BENZODIAZEPINES SCREEN NEGATIVE (Neg); URINE CANNABINOID SCREEN NEGATIVE (Neg); URINE COCAINE SCREEN NEGATIVE (Neg); URINE METHADONE SCREEN NEGATIVE (Neg); URINE OPIATE SCREEN NEGATIVE (Neg); URINE PHENCYCLIDINE SCREEN NEGATIVE (Neg)
[2023-09-19 17:09] LABS: UA COLLECTION TYPE CLN CATCH MIDSTREAM
[2023-09-19 17:10] LABS: BACTERIA,URINE NONE SEEN /HPF (Neg); MUCUS STRANDS NONE SEEN /LPF (Neg); RBC,URINE 0-2 /HPF (0-2); SQUAMOUS EPITHELIAL CELL,UR FEW /LPF (FEW); WBC,URINE NONE SEEN /HPF (0-4)
[2023-09-19 17:10] LABS: BASOPHILS % (AUTO) 0.7 % (0-1); EOSINOPHILS % (AUTO) 0.5 % (0-6); HEMATOCRIT 41.4 % (35.0-45.0); HEMOGLOBIN 14.1 g/dl (12.0-16.0); LYMPHOCYTES # (AUTO) 1.6 X10'3 (1.1-4.8); LYMPHOCYTES % (AUTO) 27.2 % (21-51); MEAN CORPUSCULAR HEMOGLOBIN 29.8 PG (27.0-31.0); MEAN CORPUSCULAR VOLUME 87.4 FL (78-98); MEAN PLATELET VOLUME 7.4 FL (7.4-10.4); MONOCYTES # (AUTO) 0.5 X10'3 (0-0.9); MONOCYTES % (AUTO) 9.3 % (2-12); NEUTROPHILS # (AUTO) 3.6 X10'3 (1.8-7.7); NEUTROPHILS % (AUTO) 62.3 % (42-75); PLATELET COUNT 359 X10'3 (140-440); RED BLOOD COUNT 4.73 X10'6 (4.20-5.60); WHITE BLOOD COUNT 5.7 X10'3 (4.5-11.0)
[2023-09-19 17:24] LABS: ALANINE AMINOTRANSFERASE 18 U/L (12-78); ALBUMIN 4.3 G/DL (3.4-5.0); ALBUMIN/GLOBULIN RATIO 1.3 (1.1-1.5); ALKALINE PHOSPHATASE 62 IU/L (46-116); ANION GAP 8 (8-16); ASPARTATE AMINO TRANSFERASE 19 U/L (10-37); BILIRUBIN,TOTAL 0.3 MG/DL (0.1-1.0); BLOOD UREA NITROGEN 5 MG/DL (7-18); BUN/CREATININE RATIO 6.6 (10.0-20.0); CALCIUM 8.8 MG/DL (8.5-10.1); CHLORIDE 106 MMOL/L (99-107); CREATININE 0.76 MG/DL (0.40-0.90); GLUCOSE 101 MG/DL (70-104); POTASSIUM 3.6 MMOL/L (3.5-5.1); SODIUM 141 MMOL/L (135-145); TOTAL CARBON DIOXIDE 26.9 MMOL/L (24-32); TOTAL PROTEIN 7.6 G/DL (6.4-8.2); eCRCL 90 ML/MIN; eGFR 90 ML/MIN
[2023-09-19 17:33] LABS: ETHANOL < 10 MG/DL (<10); THYROID STIMULATING HORMONE 0.59 ulU/ml (0.34-4.50)
[2023-09-19] MEDS ORDERED: diphenhydrAMINE 50 mg/ml inj IM ONE (18:25)
[2023-09-19] MEDS ORDERED: haloperidol lactate 5mg/ml inj IM ONE (18:25)
[2023-09-19] MEDS ORDERED: LORazepam 2 mg/ml vial IM ONE (18:25)
[2023-09-19] MEDS ORDERED: diph,pertuss (acell), tet (DTaP-PEDs)/PF (PEDIATRIC) 0.5ml syringe IMVAC ONE (19:45)
[2023-09-19] MEDS ORDERED: TETanus/Pertussis (Acell)/Diphther VAC/PF (Tdap-Adult) 0.5ml syringe IMVAC ONE (19:50)
[2023-09-19] MEDS ORDERED: LAMO150T6 PO (20:21)
[2023-09-19] MEDS ORDERED: TRAZ150T78 PO (20:26)
[2023-09-19] MEDS: traZODone 150mg tablet PO SCH (21:00)
[2023-09-20] MEDS: lamoTRIgine 100mg tablet PO SCH (10:00)
[2023-09-20] MEDS: lamoTRIgine 25mg tablet PO SCH (10:07)
[2023-09-20 13:32] VITALS: BP 97/74; PULSE 61; RESP 16; TEMP 99; O2SAT 99
[2023-09-20 16:15] VITALS: RESP 16; O2SAT 99
[2023-09-20] MEDS ORDERED: magnesium hydroxide 30ml (MOM) UD suspension PO PRN (17:10)
[2023-09-20] MEDS ORDERED: mag hydrox/Alum hydrox/simeth 30ml oral suspension PO PRN (17:10)
[2023-09-20] MEDS ORDERED: acetaminophen 325mg tablet PO PRN ×2 (17:10)
[2023-09-20] MEDS ORDERED: loperamide 2mg capsule PO PRN (17:10)
[2023-09-20 19:07] VITALS: RESP 16; O2SAT 95
[2023-09-20 19:11] VITALS: BP 107/57; PULSE 95; RESP 16; TEMP 98.8; O2SAT 99
[2023-09-20] MEDS: LORazepam 1 MG tablet PO PRN (20:00)
[2023-09-20] MEDS: traZODone 150mg tablet PO SCH (20:00)
[2023-09-21 07:00] VITALS: RESP 14; O2SAT 99
[2023-09-21] MEDS: lamoTRIgine 25mg tablet PO SCH (07:23)
[2023-09-21] MEDS: lamoTRIgine 100mg tablet PO SCH (07:23)
[2023-09-21 08:00] VITALS: BP 99/69; PULSE 78; RESP 14; TEMP 98.1; O2SAT 99
[2023-09-21 09:53] LABS: CHOL/HDL RATIO 1.8 (0.00-4.99); CHOLESTEROL 115 MG/DL (0-200); HDL CHOLESTEROL 63 MG/DL (35-60); LDL CHOLESTEROL 45 MG/DL (50-100); TRIGLYCERIDES 26 MG/DL (20-135)
[2023-09-21 19:00] VITALS: RESP 16; O2SAT 98
[2023-09-21] MEDS: naproxen 500mg tablet PO PRN (19:03)
[2023-09-21 20:00] VITALS: BP 106/55; PULSE 70; RESP 16; TEMP 97.5; O2SAT 98
[2023-09-21] MEDS: traZODone 150mg tablet PO SCH (20:27)
[2023-09-21] MEDS: LORazepam 1 MG tablet PO PRN (20:27)
[2023-09-22 07:00] VITALS: RESP 18; O2SAT 97
[2023-09-22] MEDS: CARIPRAZINE 1.5 MG CAPSULE PO SCH (07:15)
[2023-09-22] MEDS: lamoTRIgine 25mg tablet PO SCH (07:15)
[2023-09-22] MEDS: lamoTRIgine 100mg tablet PO SCH (07:15)
[2023-09-22 08:00] VITALS: BP 118/70; PULSE 66; RESP 18; TEMP 98.3; O2SAT 97
[2023-09-22] MEDS ORDERED: haloperidol lactate 5mg/ml inj ONE (11:24)
[2023-09-22] MEDS ORDERED: diphenhydrAMINE 50 mg/ml inj ONE (11:25)
[2023-09-22] MEDS ORDERED: LORazepam 2 mg/ml vial ONE (11:26)
[2023-09-22 19:00] VITALS: RESP 16; O2SAT 96
[2023-09-22 20:00] VITALS: RESP 16
[2023-09-22] MEDS: traZODone 150mg tablet PO SCH (21:00)
[2023-09-22 22:19] VITALS: BP 107/69; PULSE 89; RESP 16; TEMP 97.3; O2SAT 96
[2023-09-22 22:24] VITALS: BP 107/69; PULSE 89; RESP 16; TEMP 97.3; O2SAT 89
[2023-09-23 07:00] VITALS: RESP 14; O2SAT 96
[2023-09-23 08:00] VITALS: BP 96/52; PULSE 101; RESP 14; TEMP 98.2; O2SAT 96
[2023-09-23] MEDS: CARIPRAZINE 1.5 MG CAPSULE PO SCH (08:20)
[2023-09-23] MEDS: lamoTRIgine 100mg tablet PO SCH (08:21)
[2023-09-23] MEDS: lamoTRIgine 25mg tablet PO SCH (08:21)
[2023-09-23] MEDS ORDERED: NICOTINE POLACRILEX 2 MG LOZENGE BC PRN (14:35)
[2023-09-23] MEDS ORDERED: nicotine 21mg patch - 24 hr TD ONE (14:35)
[2023-09-23] MEDS: LORazepam 1 MG tablet PO PRN (14:40)
[2023-09-23 16:24] LABS: HBSAG SCREEN Negative (Negative); HEP B CORE AB, IGM Negative (Negative); HEP B CORE AB, TOT Negative (Negative)
[2023-09-23 19:30] VITALS: BP 126/85; PULSE 88; RESP 16; TEMP 97.9; O2SAT 99
[2023-09-23] MEDS: ondansetron 4mg rapidly disintigrating tab PO PRN (20:01)
[2023-09-23] MEDS: traZODone 150mg tablet PO SCH (20:01)
[2023-09-23] MEDS ORDERED: LIDOcaine 5% patch TP ONE (20:20)
[2023-09-24] MEDS ORDERED: temazepam 15mg capsule PO ONE (01:30)
[2023-09-24 07:00] VITALS: RESP 16; O2SAT 96
[2023-09-24 08:00] VITALS: BP 113/59; PULSE 74; RESP 16; TEMP 99; O2SAT 98
[2023-09-24] MEDS: nicotine 21mg patch - 24 hr TD SCH (08:00)
[2023-09-24] MEDS: lamoTRIgine 100mg tablet PO SCH (08:22)
[2023-09-24] MEDS: lamoTRIgine 25mg tablet PO SCH (08:23)
[2023-09-24] MEDS: CARIPRAZINE 1.5 MG CAPSULE PO SCH (08:23)
[2023-09-24] MEDS ORDERED: diphenhydrAMINE 50 mg/ml inj ONE (08:56)
[2023-09-24] MEDS ORDERED: LORazepam 2 mg/ml vial ONE (08:57)
[2023-09-24 09:30] VITALS: BP 107/72; PULSE 80; RESP 16; TEMP 97.9; O2SAT 98
[2023-09-24 13:03] VITALS: BP 111/68; PULSE 81; RESP 16; TEMP 98.9; O2SAT 98
[2023-09-24] MEDS: LORazepam 1 MG tablet PO PRN (16:00)
[2023-09-24 19:30] VITALS: BP 112/79; PULSE 89; RESP 16; TEMP 97.3; O2SAT 93
[2023-09-24] MEDS ORDERED: LIDOcaine 5% patch TP PRN (20:30)
[2023-09-24] MEDS: traZODone 150mg tablet PO SCH (20:41)
[2023-09-25 07:00] VITALS: RESP 16; O2SAT 95
[2023-09-25] MEDS: LORazepam 1 MG tablet PO PRN ×2 (07:40→13:18)
[2023-09-25] MEDS: lamoTRIgine 100mg tablet PO SCH (07:40)
[2023-09-25] MEDS: CARIPRAZINE 1.5 MG CAPSULE PO SCH (07:40)
[2023-09-25] MEDS: lamoTRIgine 25mg tablet PO SCH (07:40)
[2023-09-25 08:00] VITALS: BP 99/68; PULSE 80; RESP 15; TEMP 98.5; O2SAT 92
[2023-09-25] MEDS: nicotine 21mg patch - 24 hr TD SCH (08:00)
[2023-09-25 19:00] VITALS: BP 94/73; PULSE 87; RESP 16; RESP 18; TEMP 98.2; O2SAT 97; O2SAT 98
[2023-09-25] MEDS: traZODone 150mg tablet PO SCH (20:12)
[2023-09-25] MEDS ORDERED: traZODone 50mg tablet PO ONE (20:25)
[2023-09-26] MEDS: temazepam 15mg capsule PO ONE ×2 (00:40→00:44)
[2023-09-26] MEDS ORDERED: LORazepam 2 mg/ml vial ONE ×2 (00:57→01:35)
[2023-09-26] MEDS ORDERED: haloperidol lactate 5mg/ml inj ONE (00:58)
[2023-09-26] MEDS ORDERED: LORazepam 2 mg/ml vial IM ONE ×2 (01:30→01:35)
[2023-09-26 07:00] VITALS: RESP 12; O2SAT 99
[2023-09-26] MEDS: lamoTRIgine 100mg tablet PO SCH (07:46)
[2023-09-26] MEDS: LORazepam 1 MG tablet PO PRN (07:46)
[2023-09-26] MEDS: lamoTRIgine 25mg tablet PO SCH (07:46)
[2023-09-26] MEDS: CARIPRAZINE 1.5 MG CAPSULE PO SCH (07:46)
[2023-09-26] MEDS: nicotine 21mg patch - 24 hr TD SCH (07:47)
[2023-09-26 08:00] VITALS: BP 104/67; PULSE 82; RESP 12; TEMP 98.4; O2SAT 99
[2023-09-26] MEDS: ondansetron 4mg rapidly disintigrating tab PO PRN ×2 (11:46→17:56)
[2023-09-26 19:00] VITALS: BP 108/74; PULSE 91; RESP 16; TEMP 97.7; O2SAT 99
[2023-09-26] MEDS: traZODone 150mg tablet PO SCH (22:00)
[2023-09-26] MEDS: [UNRECOGNIZED DRUG - OTHER] VG SCH (22:00)
[2023-09-27] MEDS: LORazepam 1 MG tablet PO PRN (02:22)
[2023-09-27 07:00] VITALS: RESP 12; O2SAT 97
[2023-09-27] MEDS: nicotine 21mg patch - 24 hr TD SCH (08:00)
[2023-09-27] MEDS: CARIPRAZINE 1.5 MG CAPSULE PO SCH (08:11)
[2023-09-27] MEDS: lamoTRIgine 25mg tablet PO SCH (08:12)
[2023-09-27] MEDS: lamoTRIgine 100mg tablet PO SCH (08:13)
[2023-09-27 08:51] VITALS: BP 94/57; PULSE 62; RESP 62; TEMP 98.9; O2SAT 97
[2023-09-27] MEDS ORDERED: HALLS - SOOTHE MENTHOL 1.8 MG cough drop LOZENGE MM PRN (09:15)
[2023-09-27 19:00] VITALS: RESP 16; O2SAT 99
[2023-09-27] MEDS: traZODone 150mg tablet PO SCH (20:24)
[2023-09-27] MEDS: [UNRECOGNIZED DRUG - OTHER] VG SCH (20:25)
[2023-09-27 20:31] VITALS: BP 105/62; PULSE 78; RESP 16; TEMP 98; O2SAT 99
[2023-09-27] MEDS: prazosin 1mg capsule PO SCH (21:00)
[2023-09-28] MEDS: LORazepam 1 MG tablet PO PRN ×2 (05:59→21:57)
[2023-09-28] MEDS: naproxen 500mg tablet PO PRN (05:59)
[2023-09-28 07:00] VITALS: RESP 18; O2SAT 99
[2023-09-28 08:00] VITALS: BP 121/78; PULSE 92; RESP 16; TEMP 99.1; O2SAT 99
[2023-09-28] MEDS: nicotine 21mg patch - 24 hr TD SCH (08:00)
[2023-09-28] MEDS: lamoTRIgine 25mg tablet PO SCH (08:02)
[2023-09-28] MEDS: lamoTRIgine 100mg tablet PO SCH (08:02)
[2023-09-28] MEDS: CARIPRAZINE 1.5 MG CAPSULE PO SCH (08:02)
[2023-09-28 19:00] VITALS: RESP 16; O2SAT 100
[2023-09-28 19:42] VITALS: BP 122/77; PULSE 83; RESP 16; TEMP 98.2; O2SAT 100
[2023-09-28] MEDS: traZODone 150mg tablet PO SCH (20:57)
[2023-09-28] MEDS: prazosin 1mg capsule PO SCH (20:58)
[2023-09-28] MEDS: [UNRECOGNIZED DRUG - OTHER] VG SCH (20:58)
[2023-09-29 07:00] VITALS: RESP 12; O2SAT 99
[2023-09-29] MEDS: CARIPRAZINE 1.5 MG CAPSULE PO SCH (07:50)
[2023-09-29] MEDS: lamoTRIgine 25mg tablet PO SCH (07:50)
[2023-09-29] MEDS: lamoTRIgine 100mg tablet PO SCH (07:50)
[2023-09-29] MEDS: nicotine 21mg patch - 24 hr TD SCH (07:51)
[2023-09-29 08:00] VITALS: BP 112/61; PULSE 69; RESP 12; TEMP 98.2; O2SAT 99
[2023-09-29 19:00] VITALS: BP 101/66; PULSE 70; RESP 16; RESP 18; TEMP 98.6; O2SAT 95; O2SAT 97
[2023-09-29] MEDS: Melatonin 3mg tablet PO SCH (22:08)
[2023-09-29] MEDS: prazosin 1mg capsule PO SCH (22:08)
[2023-09-29] MEDS: traZODone 150mg tablet PO SCH (22:08)
[2023-09-29] MEDS: [UNRECOGNIZED DRUG - OTHER] VG SCH (22:09)
[2023-09-29] MEDS: naproxen 500mg tablet PO PRN (22:15)
[2023-09-30 07:00] VITALS: RESP 16; O2SAT 97
[2023-09-30] MEDS: lamoTRIgine 100mg tablet PO SCH (07:38)
[2023-09-30] MEDS: lamoTRIgine 25mg tablet PO SCH (07:38)
[2023-09-30] MEDS: CARIPRAZINE 1.5 MG CAPSULE PO SCH (07:38)
[2023-09-30] MEDS: nicotine 21mg patch - 24 hr TD SCH (07:48)
[2023-09-30 08:00] VITALS: BP 115/63; PULSE 67; RESP 16; TEMP 97.5; O2SAT 97
[2023-09-30] MEDS: naproxen 500mg tablet PO PRN (14:03)
[2023-09-30 19:00] VITALS: BP 125/78; PULSE 71; RESP 16; TEMP 98.5; O2SAT 99
[2023-09-30] MEDS: traZODone 150mg tablet PO SCH (20:43)
[2023-09-30] MEDS: Melatonin 3mg tablet PO SCH (20:43)
[2023-09-30] MEDS: prazosin 1mg capsule PO SCH (20:43)
[2023-09-30] MEDS: LORazepam 1 MG tablet PO PRN (20:43)
[2023-09-30] MEDS: [UNRECOGNIZED DRUG - OTHER] VG SCH (21:00)
[2023-10-01 07:00] VITALS: RESP 16; O2SAT 99
[2023-10-01] MEDS: CARIPRAZINE 1.5 MG CAPSULE PO SCH (07:03)
[2023-10-01] MEDS: LORazepam 1 MG tablet PO PRN ×2 (07:03→20:26)
[2023-10-01] MEDS: lamoTRIgine 100mg tablet PO SCH (07:04)
[2023-10-01] MEDS: lamoTRIgine 25mg tablet PO SCH (07:04)
[2023-10-01] MEDS: nicotine 21mg patch - 24 hr TD SCH (07:32)
[2023-10-01 08:00] VITALS: BP 115/68; PULSE 94; RESP 16; TEMP 97.5; O2SAT 99
[2023-10-01 19:00] VITALS: BP 119/76; PULSE 92; RESP 16; TEMP 97.8; O2SAT 100
[2023-10-01] MEDS: prazosin 1mg capsule PO SCH (20:26)
[2023-10-01] MEDS: traZODone 150mg tablet PO SCH (20:26)
[2023-10-01] MEDS: Melatonin 3mg tablet PO SCH (20:26)
[2023-10-01] MEDS: naproxen 500mg tablet PO PRN (20:31)
[2023-10-01] MEDS: [UNRECOGNIZED DRUG - OTHER] VG SCH (21:00)
[2023-10-01] MEDS ORDERED: traZODone 50mg tablet PO ONE (23:00)
[2023-10-02 07:00] VITALS: RESP 16; O2SAT 99
[2023-10-02 08:00] VITALS: BP 114/75; PULSE 84; RESP 16; TEMP 97.8; O2SAT 98
[2023-10-02] MEDS: nicotine 21mg patch - 24 hr TD SCH (08:00)
[2023-10-02] MEDS: lamoTRIgine 25mg tablet PO SCH (08:10)
[2023-10-02] MEDS: CARIPRAZINE 1.5 MG CAPSULE PO SCH (08:10)
[2023-10-02] MEDS: lamoTRIgine 100mg tablet PO SCH (08:10)
[2023-10-02] MEDS: LORazepam 1 MG tablet PO PRN ×2 (12:41→20:33)
[2023-10-02 19:44] VITALS: BP 124/80; PULSE 65; RESP 16; TEMP 97; O2SAT 100
[2023-10-02] MEDS: Melatonin 3mg tablet PO SCH (20:33)
[2023-10-02] MEDS: prazosin 1mg capsule PO SCH (20:33)
[2023-10-02] MEDS: traZODone 150mg tablet PO SCH (20:33)
[2023-10-02] MEDS: [UNRECOGNIZED DRUG - OTHER] VG SCH (20:36)
[2023-10-03] MEDS: LORazepam 1 MG tablet PO PRN ×2 (03:13→09:23)
[2023-10-03 07:37] VITALS: BP 116/71; PULSE 106; RESP 15; TEMP 99.1; O2SAT 98
[2023-10-03] MEDS: nicotine 21mg patch - 24 hr TD SCH (08:00)
[2023-10-03] MEDS: CARIPRAZINE 1.5 MG CAPSULE PO SCH (08:24)
[2023-10-03] MEDS: lamoTRIgine 100mg tablet PO SCH (08:24)
[2023-10-03] MEDS: lamoTRIgine 25mg tablet PO SCH (08:24)
[2023-10-03] MEDS ORDERED: CARI3CAP PO (10:44)
[2023-10-03] MEDS ORDERED: NICO-687 TD (10:44)
[2023-10-03] MEDS ORDERED: LAMO150T6 PO (10:44)
[2023-10-03] MEDS ORDERED: TRAZ150T78 PO (10:44)
[2023-10-03] MEDS ORDERED: NICO-907 BC (10:44)
[2023-10-03] MEDS ORDERED: PRAZ1CAP5 PO (10:44)
== END 2023-10-03 11:40 | disposition home or self-care (01) | DRG 753 ==
LOC: EEVIPCON 16:07 → ER 16:07 → EEVIPCON 09-20 11:35 → ED HOLD 09-20 11:35 → ADULT MH 09-20 15:26
PROVIDERS: ADMIT Psychiatry & Neurology Psychiatry; ATTEND Psychiatry & Neurology Psychiatry
DX: F39 Unspecified mood [affective] disorder (principal); F29 Unspecified psychosis not due to a substance or known physiological condition; R45.851 Suicidal ideations; F41.9 Anxiety disorder, unspecified; F19.10 Other psychoactive substance abuse, uncomplicated; F20.9 Schizophrenia, unspecified; J45.20 Mild intermittent asthma, uncomplicated; F31.9 Bipolar disorder, unspecified; G89.29 Other chronic pain; M54.9 Dorsalgia, unspecified; Z20.822 Contact with and (suspected) exposure to COVID-19; F60.9 Personality disorder, unspecified; F43.10 Post-traumatic stress disorder, unspecified; X78.0XXA Intentional self-harm by sharp glass, initial encounter; S10.91XA Abrasion of unspecified part of neck, initial encounter; Y93.89 Activity, other specified; Y92.89 Other specified places as the place of occurrence of the external cause; Y99.8 Other external cause status; Z59.00 Homelessness unspecified; Z88.8 Allergy status to other drugs, medicaments and biological substances; Z88.1 Allergy status to other antibiotic agents; Z88.0 Allergy status to penicillin; Z88.6 Allergy status to analgesic agent
CPT/HCPCS: 36415; 80053; 80061; 80305; 80320; 81001; 81025; 84443; 85025; 86704; 86705; 87081; 87340; 87811; 99285; A6250; J1200; J1630; J2060

== ENCOUNTER 2023-10-24 09:50 | Emergency (ER) | payer MEDICAID ==
[~2023-10-24] VITALS: Ht 160 cm; Wt 64.7 kg
[~2023-10-24 09:50] MED LIST changes: -BENCRM TOP; +CARI3CAP PO; -CEPH250T PO; -DIPH25CA83 PO; +LAMO150T6 PO; -LORA-512 PO; -METR-159 PO; -NAPR500T6 PO; +NICO-687 TD; +NICO-907 BC; -NITR100C6 PO; -OMEP20TA23 PO; +PRAZ1CAP5 PO; -PRED50TA PO; -RANI-366 PO; +TRAZ150T78 PO; -[UNRECOGNIZED DRUG - SUPPLY]
[2023-10-24 09:57] VITALS: BP 116/80; PULSE 109; RESP 16; TEMP 98; O2SAT 98
[2023-10-24 10:36] LABS: BILIRUBIN,URINE MODERATE (Neg); CLARITY,URINE CLOUDY (Clear); COLOR,URINE YELLOW (Yellow); GLUCOSE, URINE NEGATIVE (Neg); KETONES,URINE >=80 mg/dl (Neg); LEUKOCYTE ESTERASE ,URINE NEGATIVE (Neg); NITRITES, URINE NEGATIVE (Neg); OCCULT BLOOD,URINE NEGATIVE (Neg); PH,URINE 5.5 (4.8-8.0); PROTEIN,URINE NEGATIVE (Neg); URINE HCG NEGATIVE (NEG); UROBILINOGEN,URINE 0.2 E.U/dL (0.2-1.0)
[2023-10-24 10:38] LABS: UA COLLECTION TYPE OTHER
[2023-10-24 10:51] LABS: SQUAMOUS EPITHELIAL CELL,UR MANY /LPF (FEW)
[2023-10-24 10:52] LABS: TRANSITIONAL EPI CELLS,URINE FEW /HPF
[2023-10-24 10:55] LABS: MUCUS STRANDS MANY /LPF (Neg)
[2023-10-24 10:57] LABS: RBC,URINE 0-2 /HPF (0-2)
[2023-10-24 10:58] LABS: BACTERIA,URINE 2+ /HPF (Neg)
[2023-10-24] MEDS ORDERED: CefTRIAXone 1000mg IM Kit (w/lidocaine diluent) IM ONE (11:05)
[2023-10-24] MEDS ORDERED: CefTRIAXone 500MG IM Kit w/LIDOcaine IM ONE (11:15)
[2023-10-24] MEDS ORDERED: DOXY-135 PO (12:36)
[2023-10-24 13:13] LABS: SYPHILIS SCREENING TEST POC NEGATIVE (Negative)
[2023-10-26 10:22] LABS: CHLAMYDIA TRACHOMATIS, NAA Negative (Negative)
== END 2023-10-24 12:50 | disposition home or self-care (01) ==
LOC: ER 09:50 → EEVIPCON 09:50 → ER 12:50
DX: N73.0 Acute parametritis and pelvic cellulitis (principal); J45.909 Unspecified asthma, uncomplicated; G89.29 Other chronic pain; F31.9 Bipolar disorder, unspecified; F41.9 Anxiety disorder, unspecified; F20.9 Schizophrenia, unspecified; F12.90 Cannabis use, unspecified, uncomplicated; F15.90 Other stimulant use, unspecified, uncomplicated; Z98.890 Other specified postprocedural states; Z56.0 Unemployment, unspecified; Z88.8 Allergy status to other drugs, medicaments and biological substances; Z88.0 Allergy status to penicillin; Z91.010 Allergy to peanuts; Z88.1 Allergy status to other antibiotic agents; Z79.899 Other long term (current) drug therapy
CPT/HCPCS: 36415; 81001; 81025; 87210; 87491; 87591; 96372; 99283; J0696; Q0112

== ENCOUNTER 2023-12-23 11:15 | Emergency (ER) | payer MEDICAID ==
[~2023-12-23] VITALS: Ht 162.6 cm; Wt 60.0 kg
[2023-12-23 11:47] VITALS: BP 111/81; PULSE 95; RESP 16; TEMP 97.6; O2SAT 98
[2023-12-23] MEDS ORDERED: NYST30CR35 TOP (13:16)
[2023-12-23 13:57] LABS: BILIRUBIN,URINE NEGATIVE (Neg); CLARITY,URINE SLIGHTLY CLOUDY (Clear); COLOR,URINE YELLOW (Yellow); GLUCOSE, URINE NEGATIVE (Neg); KETONES,URINE NEGATIVE (Neg); LEUKOCYTE ESTERASE ,URINE NEGATIVE (Neg); NITRITES, URINE NEGATIVE (Neg); OCCULT BLOOD,URINE NEGATIVE (Neg); PH,URINE 5.5 (4.8-8.0); PROTEIN,URINE NEGATIVE (Neg); UROBILINOGEN,URINE 0.2 E.U/dL (0.2-1.0)
[2023-12-23 14:04] LABS: UA COLLECTION TYPE VOIDED
[2023-12-23 14:05] LABS: MUCUS STRANDS MANY /LPF (Neg); SQUAMOUS EPITHELIAL CELL,UR MANY /LPF (FEW)
[2023-12-23 14:06] LABS: WBC,URINE 50-100 /HPF (0-4)
[2023-12-23 14:07] LABS: TRANSITIONAL EPI CELLS,URINE FEW /HPF
[2023-12-23 14:08] LABS: BACTERIA,URINE FEW /HPF (Neg)
[2023-12-23 14:19] LABS: RBC,URINE 0-2 /HPF (0-2)
[2023-12-23] MEDS ORDERED: NITR100C6 PO (14:23)
== END 2023-12-23 14:34 | disposition home or self-care (01) ==
LOC: ER 11:16 → EEVIPCON 11:16 → ER 14:34
DX: N76.0 Acute vaginitis (principal); L30.8 Other specified dermatitis; R30.0 Dysuria; J45.909 Unspecified asthma, uncomplicated; G89.29 Other chronic pain; M54.9 Dorsalgia, unspecified; F20.9 Schizophrenia, unspecified; Z88.6 Allergy status to analgesic agent; Z91.010 Allergy to peanuts; Z88.1 Allergy status to other antibiotic agents; Z79.899 Other long term (current) drug therapy
CPT/HCPCS: 36415; 81001; 87210; 87491; 99284

== ENCOUNTER 2024-01-05 20:41 | Emergency (ER) | payer MEDICAID ==
[~2024-01-05] VITALS: Ht 160 cm; Wt 61.6 kg
[~2024-01-05 20:41] MED LIST changes: +NITR100C6 PO; +NYST30CR35 TOP
[2024-01-05 22:21] LABS: BASOPHILS % (AUTO) 0.5 % (0-1); EOSINOPHILS % (AUTO) 0.5 % (0-6); HEMOGLOBIN 13.4 g/dl (12.0-16.0); LYMPHOCYTES # (AUTO) 1.8 X10'3 (1.1-4.8); LYMPHOCYTES % (AUTO) 29.6 % (21-51); MEAN CORPUSCULAR HEMOGLOBIN 30.1 PG (27.0-31.0); MEAN CORPUSCULAR HGB CONC 34.3 g/dL (33.0-36.5); MEAN CORPUSCULAR VOLUME 87.8 FL (78-98); MEAN PLATELET VOLUME 7.7 FL (7.4-10.4); MONOCYTES # (AUTO) 0.6 X10'3 (0-0.9); MONOCYTES % (AUTO) 9.8 % (2-12); NEUTROPHILS # (AUTO) 3.5 X10'3 (1.8-7.7); NEUTROPHILS % (AUTO) 59.6 % (42-75); PLATELET COUNT 289 X10'3 (140-440); RED BLOOD COUNT 4.45 X10'6 (4.20-5.60); WHITE BLOOD COUNT 5.9 X10'3 (4.5-11.0)
[2024-01-05 22:22] LABS: BILIRUBIN,URINE NEGATIVE (Neg); CLARITY,URINE SLIGHTLY CLOUDY (Clear); COLOR,URINE YELLOW (Yellow); GLUCOSE, URINE NEGATIVE (Neg); KETONES,URINE NEGATIVE (Neg); LEUKOCYTE ESTERASE ,URINE NEGATIVE (Neg); NITRITES, URINE NEGATIVE (Neg); OCCULT BLOOD,URINE NEGATIVE (Neg); PROTEIN,URINE NEGATIVE (Neg); UROBILINOGEN,URINE 0.2 E.U/dL (0.2-1.0)
[2024-01-05 22:30] LABS: UA COLLECTION TYPE CLN CATCH MIDSTREAM
[2024-01-05 22:31] LABS: BACTERIA,URINE 1+ /HPF (Neg); MUCUS STRANDS MANY /LPF (Neg); RBC,URINE 0-2 /HPF (0-2); SQUAMOUS EPITHELIAL CELL,UR MANY /LPF (FEW); WBC,URINE 0-4 /HPF (0-4)
[2024-01-05 22:35] LABS: URINE HCG NEGATIVE (NEG)
[2024-01-05 22:49] LABS: URINE AMPHETAMINE SCREEN NEGATIVE (Neg); URINE BARBITUATE SCREEN NEGATIVE (Neg); URINE BENZODIAZEPINES SCREEN NEGATIVE (Neg); URINE CANNABINOID SCREEN POSITIVE (Neg); URINE COCAINE SCREEN NEGATIVE (Neg); URINE METHADONE SCREEN NEGATIVE (Neg); URINE OPIATE SCREEN NEGATIVE (Neg); URINE PHENCYCLIDINE SCREEN NEGATIVE (Neg)
[2024-01-05 23:21] LABS: ANION GAP 9 (8-16); BLOOD UREA NITROGEN 15 MG/DL (7-18); BUN/CREATININE RATIO 20.3 (10.0-20.0); CALCIUM 8.3 MG/DL (8.5-10.1); CHLORIDE 107 MMOL/L (99-107); CREATININE 0.74 MG/DL (0.40-0.90); GLUCOSE 97 MG/DL (70-104); POTASSIUM 3.5 MMOL/L (3.5-5.1); SALICYLATE 1.1 MG/DL (4.0-20.0); SODIUM 143 MMOL/L (135-145); TOTAL CARBON DIOXIDE 26.8 MMOL/L (24-32); eCRCL 93 ML/MIN; eGFR > 90 ML/MIN
[2024-01-05 23:24] LABS: ACETAMINOPHEN < 2.0 UG/ML (10-30); ETHANOL < 10 MG/DL (<10)
[2024-01-06] MEDS ORDERED: NO HOME MEDS (00:04)
[2024-01-06 06:11] VITALS: BP 105/65; PULSE 77; TEMP 98.9; O2SAT 98
[2024-01-06 08:20] VITALS: RESP 16
== END 2024-01-06 15:48 | disposition home or self-care (01) ==
LOC: ER 20:42
DX: R45.851 Suicidal ideations (principal); Z20.822 Contact with and (suspected) exposure to COVID-19; J45.909 Unspecified asthma, uncomplicated; F31.9 Bipolar disorder, unspecified; F12.90 Cannabis use, unspecified, uncomplicated; F15.90 Other stimulant use, unspecified, uncomplicated; Z88.6 Allergy status to analgesic agent; Z91.010 Allergy to peanuts; Z88.0 Allergy status to penicillin; Z88.8 Allergy status to other drugs, medicaments and biological substances; Z88.1 Allergy status to other antibiotic agents
CPT/HCPCS: 36415; 80048; 80305; 80320; 80329; 81001; 81025; 85025; 87811; 93005; 99285

== ENCOUNTER 2024-01-17 15:47 | Emergency (ER) | payer OTHER, MEDICAID ==
[~2024-01-17] VITALS: Ht 160 cm; Wt 57.7 kg
[~2024-01-17 15:47] MED LIST changes: -CARI3CAP PO; -LAMO150T6 PO; -NICO-687 TD; -NICO-907 BC; -NITR100C6 PO; +NO HOME MEDS; -NYST30CR35 TOP; -PRAZ1CAP5 PO; -TRAZ150T78 PO
[2024-01-17 19:00] LABS: URINE HCG NEGATIVE (NEG)
[2024-01-17 19:01] LABS: BILIRUBIN,URINE NEGATIVE (Neg); CLARITY,URINE TURBID (Clear); COLOR,URINE YELLOW (Yellow); GLUCOSE, URINE NEGATIVE (Neg); KETONES,URINE >=80 mg/dl (Neg); LEUKOCYTE ESTERASE ,URINE MODERATE (Neg); NITRITES, URINE POSITIVE (Neg); OCCULT BLOOD,URINE NEGATIVE (Neg); PH,URINE 8.5 (4.8-8.0); PROTEIN,URINE TRACE mg/dl (Neg)
[2024-01-17] MEDS ORDERED: iohexol 350MG/ML 100ml bottle IV ONE (19:12)
[2024-01-17 19:13] LABS: URINE AMPHETAMINE SCREEN POSITIVE (Neg); URINE BARBITUATE SCREEN NEGATIVE (Neg); URINE BENZODIAZEPINES SCREEN NEGATIVE (Neg); URINE CANNABINOID SCREEN POSITIVE (Neg); URINE COCAINE SCREEN NEGATIVE (Neg); URINE METHADONE SCREEN NEGATIVE (Neg); URINE OPIATE SCREEN NEGATIVE (Neg); URINE PHENCYCLIDINE SCREEN NEGATIVE (Neg)
[2024-01-17 19:14] LABS: UA COLLECTION TYPE VOIDED
[2024-01-17 19:16] LABS: MUCUS STRANDS MANY /LPF (Neg); SQUAMOUS EPITHELIAL CELL,UR FEW /LPF (FEW)
[2024-01-17 19:17] LABS: BACTERIA,URINE 3+ /HPF (Neg); WBC,URINE 30-50 /HPF (0-4)
[2024-01-17 19:18] LABS: AMORPHOUS PHOSPHATES 2+
[2024-01-17 19:19] LABS: RBC,URINE 0-2 /HPF (0-2)
[2024-01-17 19:25] LABS: BASOPHILS % (AUTO) 0.6 % (0-1); EOSINOPHILS % (AUTO) 0.5 % (0-6); HEMATOCRIT 42.7 % (35.0-45.0); HEMOGLOBIN 14.5 g/dl (12.0-16.0); LYMPHOCYTES # (AUTO) 1.7 X10'3 (1.1-4.8); MEAN CORPUSCULAR HEMOGLOBIN 29.7 PG (27.0-31.0); MEAN CORPUSCULAR HGB CONC 33.9 g/dL (33.0-36.5); MEAN CORPUSCULAR VOLUME 87.4 FL (78-98); MEAN PLATELET VOLUME 7.4 FL (7.4-10.4); MONOCYTES # (AUTO) 0.7 X10'3 (0-0.9); MONOCYTES % (AUTO) 9.3 % (2-12); NEUTROPHILS # (AUTO) 5.3 X10'3 (1.8-7.7); NEUTROPHILS % (AUTO) 67.6 % (42-75); PLATELET COUNT 397 X10'3 (140-440); RED BLOOD COUNT 4.89 X10'6 (4.20-5.60); RED CELL DISTRIBUTION WIDTH 13.2 % (11.5-14.5); WHITE BLOOD COUNT 7.9 X10'3 (4.5-11.0)
[2024-01-17 19:38] LABS: ALBUMIN 4.1 G/DL (3.4-5.0); ANION GAP 13 (8-16); BLOOD UREA NITROGEN 12 MG/DL (7-18); BUN/CREATININE RATIO 12.6 (10.0-20.0); CALCIUM 8.5 MG/DL (8.5-10.1); CHLORIDE 106 MMOL/L (99-107); CREATININE 0.95 MG/DL (0.40-0.90); ETHANOL < 10 MG/DL (<10); GLUCOSE 85 MG/DL (70-104); POTASSIUM 3.3 MMOL/L (3.5-5.1); SALICYLATE 0.8 MG/DL (4.0-20.0); SODIUM 143 MMOL/L (135-145); THYROID STIMULATING HORMONE 1.22 ulU/ml (0.34-4.50); TOTAL CARBON DIOXIDE 24.4 MMOL/L (24-32); eCRCL 72 ML/MIN; eGFR 70 ML/MIN
[2024-01-17] MEDS: CefTRIAXone 500MG IM Kit w/LIDOcaine (for pt below or = to 150kg) IM ONE (19:55)
[2024-01-17] MEDS: azithromycin 250mg tablet PO ONE (19:56)
[2024-01-17] MEDS: LORazepam 1 MG tablet PO ONE (19:56)
[2024-01-17] MEDS: TINIDAZOLE 500 MG TABLET PO ONE (19:56)
[2024-01-17] MEDS: LEVONORGESTREL 1.5MG tablet 1.5 MG TABLET PO ONE (19:56)
[2024-01-17 20:03] LABS: ACETAMINOPHEN < 2.0 UG/ML (10-30)
[2024-01-18 00:03] VITALS: BP 138/87; PULSE 89; RESP 18; TEMP 97.5; O2SAT 98
[2024-01-18] MEDS: diphenhydrAMINE 25mg capsule PO ONE (03:52)
[2024-01-18] MEDS: LORazepam 2 mg/ml vial IM ONE (10:05)
[2024-01-18] MEDS: diphenhydrAMINE 50 mg/ml inj IM ONE (10:05)
[2024-01-18] MEDS: haloperidol lactate 5mg/ml inj IM ONE (10:05)
== END 2024-01-18 13:04 | disposition home or self-care (01) ==
LOC: ER 15:47 → EEVIPCON 15:47 → ER 01-18 13:04
DX: T76.21XA Adult sexual abuse, suspected, initial encounter (principal); Z20.822 Contact with and (suspected) exposure to COVID-19; F32.A Depression, unspecified; J45.909 Unspecified asthma, uncomplicated; G89.29 Other chronic pain; M54.9 Dorsalgia, unspecified; F31.9 Bipolar disorder, unspecified; F20.9 Schizophrenia, unspecified; F12.10 Cannabis abuse, uncomplicated; F15.10 Other stimulant abuse, uncomplicated; Z88.6 Allergy status to analgesic agent; Z91.010 Allergy to peanuts; Z88.8 Allergy status to other drugs, medicaments and biological substances; Z79.899 Other long term (current) drug therapy
CPT/HCPCS: 36415; 70498; 80048; 80305; 80320; 80329; 81001; 81025; 84443; 85025; 87811; 96372; 99285; J0696; J3490; Q0163; Q9967

== ENCOUNTER 2024-03-16 03:03 | Emergency (ER) | payer MEDICAID, OTHER ==
[~2024-03-16] VITALS: Ht 160 cm; Wt 63.6 kg
[2024-03-16 03:15] VITALS: BP 116/82
[2024-03-16 07:20] LABS: BILIRUBIN,URINE SMALL (Neg); CLARITY,URINE CLOUDY (Clear); COLOR,URINE YELLOW (Yellow); GLUCOSE, URINE NEGATIVE (Neg); KETONES,URINE TRACE mg/dl (Neg); LEUKOCYTE ESTERASE ,URINE MODERATE (Neg); NITRITES, URINE NEGATIVE (Neg); OCCULT BLOOD,URINE NEGATIVE (Neg); PH,URINE 5.5 (4.8-8.0); PROTEIN,URINE TRACE mg/dl (Neg); UROBILINOGEN,URINE 0.2 E.U/dL (0.2-1.0)
[2024-03-16 07:21] LABS: URINE HCG NEGATIVE (NEG)
[2024-03-16 07:32] LABS: UA COLLECTION TYPE VOIDED
[2024-03-16 07:36] LABS: MUCUS STRANDS MANY /LPF (Neg); WBC,URINE TNTC /HPF (0-4)
[2024-03-16 07:37] LABS: BACTERIA,URINE 2+ /HPF (Neg); RBC,URINE 0-2 /HPF (0-2); URINE AMPHETAMINE SCREEN POSITIVE (Neg); URINE BARBITUATE SCREEN NEGATIVE (Neg); URINE BENZODIAZEPINES SCREEN NEGATIVE (Neg); URINE CANNABINOID SCREEN POSITIVE (Neg); URINE COCAINE SCREEN NEGATIVE (Neg); URINE METHADONE SCREEN NEGATIVE (Neg); URINE OPIATE SCREEN NEGATIVE (Neg); URINE PHENCYCLIDINE SCREEN NEGATIVE (Neg)
[2024-03-16 07:38] LABS: SQUAMOUS EPITHELIAL CELL,UR MANY /LPF (FEW); TRANSITIONAL EPI CELLS,URINE MODERATE /HPF
[2024-03-16 07:39] LABS: WBC CLUMPS,URINE MODERATE /HPF (NEGATIVE)
[2024-03-16] MEDS ORDERED: CEPH250T PO (08:17)
[2024-03-16] MEDS ORDERED: DIPH25CA52 PO (08:19)
[2024-03-16 09:10] VITALS: PULSE 99; RESP 16; TEMP 97.9; O2SAT 97
== END 2024-03-16 09:19 | disposition home or self-care (01) ==
LOC: ER 03:03
DX: N39.0 Urinary tract infection, site not specified (principal); L50.9 Urticaria, unspecified; F19.151 Other psychoactive substance abuse with psychoactive substance-induced psychotic disorder with hallucinations; J45.909 Unspecified asthma, uncomplicated; F12.90 Cannabis use, unspecified, uncomplicated; F15.10 Other stimulant abuse, uncomplicated; Z88.0 Allergy status to penicillin; Z88.1 Allergy status to other antibiotic agents; Z88.6 Allergy status to analgesic agent; Z88.8 Allergy status to other drugs, medicaments and biological substances; Z91.010 Allergy to peanuts
CPT/HCPCS: 80305; 81001; 81025; 99283